=== PATIENT | male | born 2000 | race Two or more races ===

== ENCOUNTER 2024-07-30 16:41 | Emergency (ER) | payer OTHER ==
[~2024-07-30] VITALS: Ht 177.8 cm; Wt 86.2 kg
[2024-07-30 16:47] VITALS: BP 122/75; O2SAT 98
[2024-07-30] MEDS ORDERED: DEXAMETHASONE SODIUM PHOSPHATE 4 MG/ML VIAL IM ONE (20:45)
[2024-07-30] MEDS ORDERED: ACETAMINOPHEN 500 MG GEL..CAP PO ONE ×2 (20:45→20:50)
[2024-07-30] MEDS ORDERED: ORPHENADRINE CITRATE 30 MG/ML AMPUL IM ONE (20:45)
[2024-07-30] MEDS ORDERED: ORPHENADRINE CITRATE 30 MG/ML AMPUL ONE (20:49)
[2024-07-30] MEDS ORDERED: DEXAMETHASONE SODIUM PHOSPHATE 4 MG/ML VIAL ONE (20:50)
[2024-07-30] MEDS ORDERED: TYLENOL ARTHRI650 MG PO (22:07)
[2024-07-30] MEDS ORDERED: NORFLEX100MG PO (22:07)
== END 2024-07-30 22:17 ==
LOC: ER 16:43
DX: S33.5XXA Sprain of ligaments of lumbar spine, initial encounter (principal); X58.XXXA Exposure to other specified factors, initial encounter; Y93.89 Activity, other specified; Y92.89 Other specified places as the place of occurrence of the external cause; Y99.9 Unspecified external cause status; Z88.6 Allergy status to analgesic agent